=== PATIENT | female | born 1955 | race Caucasian/White ===

== ENCOUNTER 2016-07-31 05:37 | Day surgery (SDC) | payer OTHER ==
[~2016-07-31] VITALS: Ht 175.3 cm; Wt 80.1 kg
[2016-07-31] VITALS (10 sets, daily range): BP systolic 104–140; BP diastolic 54–88; PULSE 68–96; RESP 16–20; O2SAT 93–100
[~2016-07-31 05:37] MED LIST: LEVO25TA5 PO; Lactated Ringer's 1,000 ML IV ONE; RANI150C4 PO
[2016-07-31] MEDS ORDERED: fentaNYL-PF 50 mCg/mL 2 mL Inj ONE (05:38)
[2016-07-31] MEDS ORDERED: Propofol 10,000 mCg/mL 20 mL Inj ONE (05:38)
[2016-07-31] MEDS ORDERED: Ondansetron 2 mg/mL 2 mL Inj ONE (05:38)
[2016-07-31] MEDS ORDERED: Dexamethasone 4 mg/mL Inj ONE (05:38)
[2016-07-31] MEDS ORDERED: Bupivacaine Liposome 1.3% 20 mL Inj INFILTRATE ONE ×2 (06:00→08:20)
[2016-07-31] MEDS ORDERED: CeFAZolin Inj 2 GM in IV Premix 1 EACH IV ONE (06:00)
--- NOTE | 2016-07-31 07:09 | PCM.HPANE ---
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 Ht/WT & BMI Height (Feet): 5 Height (Inches): 9 Weight (Kilograms): 80.1 Body Mass Index 26.00 Allergies Coded Allergies: terbinafine (Verified Allergy, Unknown, ITCHING RASH, 07/31/16) Past Anesthesia History Anesthesia History: Positive for:: Abnormal Airway (Vocal cord dysfunction), Denies:: Anesthesia Reactions, Difficult Intubation, Fam Anesthesia Reaction , Fam Malignant Hypertherm, Malignant Hyperthermia Diabetes History Hx Diabetes?: No MRSA MRSA: No Medications Home Meds Incl Beta Naresh: No Reported Medications Ranitidine 150 Mg [id number] Mg PO BID Ref 0 07/25/16 Levothyroxine 25 Mcg Yyxwjt32 Mcg PO DAILY Ref 0 07/25/16 Discontinued Reported Medications Ranitidine 150 Mg [id number] Mg PO DAILY Ref 0 09/29/15 Levothyroxine 100 Mcg [id number] Mcg PO DAILY For Thyroid Replacement Ref 0 09/29/15 History HEENT History: Positive for:: Abnormal Airway (Vocal cord dysfunction) Denies:: Difficult Intubation Hearing Problem Hx of Heart Problems?: Yes Cardiovascular History: Positive for:: Thrombophlebitis (HX OF ANKLE DVT @ 11YRS OF AGE) Denies:: Hypertension Hx of Respiratory Problem?: Yes Respiratory History: Denies:: Use of C-PAP Machine (SNORES) Hx Neurologic Problems?: Yes Neurological History: Positive for:: Headaches Denies:: CVA Hx of GI Problems?: Yes Gastrointestinal History: Positive for:: Gastroesphageal Reflux (HX OF) Hx of Problems?: No Female Hx: Denies:: Currently (POST MENOPAUSAL) Skin History: Denies:: History Skin Disorders? Pressure Ulcers Hx Musculoskeletal Problems?: Yes Musculoskeletal History: Positive for:: Musculoskeletal Trauma (RT PATELLO- FEMORAL ARTHRITIS=CURRENT PROBLEM) Hx of Psycho/Social Problems?: No Hx Surgeries?: Yes (Left foot nerve removal) Hx Any Other Health Problems?: Yes Other History: Positive for:: Thyroid Disease Denies:: Cancer Endocrine Disease Hospitalization History Blood Transfusions: Denies:: Blood Transfusions Hx Diabetes: No Hx Alcohol Use: YesAlcoholic Drinks Per Day: 1/WEEK Smoking Status: Former Smoker Have You Smoked inLast 12 mo: No Stop/Bang S-Snoring: Do You Snore Loudly: Yes T-Tired: feel tired, fatigued: No O-Obsered: Observed not breath: No P-Blood Pressure: treated: No B- Body Mass Index > 35 kg/m2: No A- Age over 50: Yes N- Neck Large Circumference: No G- Gender Male: No SENIA Total Score: 2 SENIA Risk Assessment: Low Risk, <3 Yes Risk Assessment Category Category 1A: Patient has history of documented sleep apnea, and HAS NOT received any narcotic, sedative or anesthesia administration during this stay. Category 1B: Patient has history of documented sleep apnea, and HAS received any narcotic , sedative or anesthesia administration during this stay Category 2: Patient has SUSPECTED Obstructive Sleep Apnea, and HAS received any narcotic , sedative or anesthesia administration during this stay. Category 3: Patient has SUSPECTED Obstructive Sleep Apnea and HAS NOT received narcotic, sedative or anesthesia administration during this stay. Category 4: Outpatient in Procedural Areas with known sleep apnea or who screen positive for High Risk via the STOP/BANG questionnaire. Exam Exam Vital Signs Vital Signs Date Time Temp Pulse Resp B/P Pulse Ox O2 Delivery O2 Flow Rate FiO2 07/31/16 06:40 36.5 73 16 126/77 96 Room Air General Appearance: Alert, Oriented X3, Cooperative, No Acute Distress HEENT/AIRWAY: MP 1, Neck Movement Lungs: Clear to Auscultation, Normal Air Movement Heart: Exam Unremarkable, Regular Rate/Rhythm, No Murmurs/Rubs/Gallops Plan Impression Patient chart reviewed, patient interviewed and anesthestic plan with risks, benefits, and alternatives discussed, and informed consent obtained. NPO Status: 1600 07/30 ASA Physical Status: ASA2 Mod Systemic Disease Anesthetic Plan: GA, Regional Block Bene/Risks/Altern/Consents: Yes HP Complete Prior to Induction: Yes Vadim Pierson MD Jul 31, 2016 07:09
[2016-07-31] MEDS ORDERED: Lactated Ringer's 1,000 ML IV ONE (07:14)
[2016-07-31] MEDS: Vancomycin Inj 1,000 MG in IV Premix 1 EACH IV SCH (07:24)
[2016-07-31] MEDS ORDERED: Lactated Ringer's 1,000 ML IV SCH ×2 (08:16→10:45)
[2016-07-31] MEDS ORDERED: Lactated Ringer's 500 ML IV PRN (08:16)
[2016-07-31] MEDS ORDERED: Gentamicin 40 mg/mL 2 mL Inj IRRIGATION ONE (08:19)
[2016-07-31] MEDS ORDERED: hydrALAZINE 20 mg/mL Inj IVPUSH PRN (08:20)
[2016-07-31] MEDS ORDERED: Dexamethasone 4 mg/mL Inj IVPUSH PRN (08:20)
[2016-07-31] MEDS ORDERED: Bupivacaine-MPF 0.25%/EPI 30 mL Inj INJ ONE (08:20)
[2016-07-31] MEDS ORDERED: EPHEDrine Sulfate 50 mg/mL Inj IVPUSH PRN (08:20)
[2016-07-31] MEDS ORDERED: Phenylephrine 10,000 mCg/mL Inj IVPUSH PRN (08:20)
[2016-07-31] MEDS ORDERED: Atropine 0.4 mg/mL Inj IVPUSH PRN (08:20)
[2016-07-31] MEDS ORDERED: HYDROmorphone 1 mg/mL Inj IVPUSH PRN (08:20)
[2016-07-31] MEDS ORDERED: Labetalol 5 mg/mL 4 mL Inj IV PRN (08:20)
[2016-07-31] MEDS ORDERED: fentaNYL-PF 50 mCg/mL 2 mL Inj IVPUSH PRN (08:20)
[2016-07-31] MEDS ORDERED: MetoCLOpramide 5 mg/mL 2 mL Inj IVPUSH PRN (08:20)
[2016-07-31] MEDS ORDERED: Ondansetron 2 mg/mL 2 mL Inj IVPUSH PRN (08:20)
--- NOTE | 2016-07-31 09:57 | DRSVH ---
PROCEDURE: X-RAY RIGHT KNEE, ONE OR TWO VIEWS ([id number]) INDICATIONS: CHECK ALIGNMENT TECHNIQUE: 2 view(s) of the knee acquired. COMPARISON: None. FINDINGS: Bones: Patient is status post patellar femoral arthroplasty. Hardware components are in expected po sitions. Visualized bony structures are intact. Soft tissues: Overlying postoperative changes are noted. IMPRESSION: Patellofemoral arthroplasty with prostheses in anatomic alignment. Dictated by: Mary Ann Lopez M.D. on 07/31/2016 at 9:54 Approved by: MaryA nn Lopez M.D. on 07/31/2016 at 9:55
[2016-07-31] MEDS ORDERED: Alum-Mag Hydrox-Simeth 30 mL Suspension PO PRN (10:45)
[2016-07-31] MEDS ORDERED: Ondansetron 2 mg/mL 2 mL Inj IV PRN (10:45)
[2016-07-31] MEDS ORDERED: hydrOXYzine Pamoate 25 mg Capsule PO PRN (10:45)
[2016-07-31] MEDS ORDERED: diphenhydrAMINE 25 mg Capsule PO PRN (10:45)
[2016-07-31] MEDS ORDERED: Ondansetron 8 mg ODT Tablet PO PRN (10:45)
[2016-07-31] MEDS ORDERED: MetoCLOpramide 5 mg/mL 2 mL Inj IV PRN (10:45)
[2016-07-31] MEDS ORDERED: Sodium Biphos-Phos 133 mL Enema RECTAL PRN (10:45)
[2016-07-31] MEDS ORDERED: LORazepam 0.5 mg Tablet PO PRN (10:45)
[2016-07-31] MEDS ORDERED: Magnesium Hydroxide 10 mL Oral Concentration PO PRN (10:45)
[2016-07-31] MEDS ORDERED: HYDROcodone-APAP 5-325 mg Tablet PO PRN (10:45)
--- NOTE | 2016-07-31 11:06 | PCM.ANEP1 ---
Post Anesthesia Phase 1 PACU Phase 1 Assessment Vital Signs Vital Signs Date Time Temp Pulse Resp B/P Pulse Ox O2 Delivery O2 Flow Rate FiO2 07/31/16 10:27 36.5 79 16 118/69 94 07/31/16 09:40 36.5 80 18 130/80 96 Room Air 07/31/16 09:35 87 20 130/72 96 Room Air 07/31/16 09:30 93 19 123/88 99 Room Air 07/31/16 09:25 96 17 132/84 100 Simple Mask 8 07/31/16 09:22 36.3 96 16 140/84 100 Simple Mask 8 07/31/16 06:40 36.5 73 16 126/77 96 Room Air Level of Alertness: Awake, talking LANGE's with Equal Strength: Yes Pain: No Nausea or Vomiting: No Oxygen Delivery: Room Air Lungs: Clear to Auscultation, Normal Air Movement Dermatome Level: Full Sensation Vadim Pierson MD Jul 31, 2016 11:06
--- NOTE | 2016-07-31 11:19 | NUR ---
ADMIT TO [facility] Patient arrived to room 1019 on hospital bed. Alert and oriented, on RA. Hemavac in place to R knee. R knee with operative dressing, mack wrap on outside. Patient has all sensation in bilateral toes and feet. Report no numbness or tingling. Rates pain as 5/10, but describes as aching. States pain is tolerable and denied any pain medication. Advised patient to report any increase in pain. IV fluids running. Ice chips and coffee given to patient. Will continue to monitor.
[2016-07-31] MEDS: Lactated Ringer's 1,000 ML IV SCH (11:23)
--- NOTE | 2016-07-31 11:23 | PCM.ANEP2 ---
Post Anesthesia Evaluation ASA/CMS Post Anesthesia VS in Patient's Normal Range?: Yes Resp Stable; Airway Patent?: Yes CV Function & Hydration Stable: Yes Mental Status Recovered?: Yes Pain control Satisfactory?: Yes N/V Control Satisfactory?: Yes Vadim Pierson MD Jul 31, 2016 11:23
--- NOTE | 2016-07-31 15:28 | NUR ---
Evaluation completed. Please go to "Notes" then click on "Assessments and Notes" (bottom left corner of screen). Then select appropriate discipline tab on top of screen.
[2016-07-31] MEDS: CeFAZolin Inj 2 GM in IV Premix 1 EACH IV SCH (16:33)
[2016-07-31] MEDS: Sodium Chloride LOK Flush 10 mL Syringe IV SCH (16:34)
[2016-07-31] MEDS ORDERED: Vancomycin Inj 1,000 MG in IV Premix 1 EACH IV ONE (19:30)
[2016-08-01] MEDS: Sodium Chloride LOK Flush 10 mL Syringe IV SCH ×2 (00:02→08:30)
[2016-08-01 00:04] VITALS: BP 107/67; PULSE 83; RESP 18; O2SAT 96
--- NOTE | 2016-08-01 00:10 | OP ---
[address] [address] OPERATIVE REPORT PATIENT: VENKATA MORTENSEN : 1955 MR#: [id number] ADMIT: 07/31/2016 JOB ID: [id number] DATE OF SURGERY: 07/31/2016 PREOPERATIVE DIAGNOSIS(ES): Right knee advanced patellofemoral arthritis. POSTOPERATIVE DIAGNOSIS(ES): Right knee advanced patellofemoral arthritis. PROCEDURE: Right knee patellofemoral arthroplasty. SURGEON: Derek Ramos MD. VEGETABLE WASHER: Mary Price PA-C. Hygiene Teacher required due to the complexity of the operation. INDICATIONS: This woman has had severe disability secondary to advanced patellofemoral arthritis. Radiographs demonstrate the tibial femoral articulation. No evidence of osteoarthritis. She elects to proceed with consideration of patellofemoral arthroplasty. Final decision was made at the time of surgery after observation of the of the medial and lateral tibial femoral components. PROCEDURE: The patient was prepped and draped in usual sterile fashion. An anteromedial approach was made. The patella was examined. The knee was flexed up and the tibial-femoral medial and lateral compartments were examined, and these were noted to be in excellent condition. Therefore, decision was made to proceed with patellofemoral arthroplasty. The patella was cut transversely and sized to a 32 component. Drill holes for this were made. Drill holes placed in the distal femur and an anterior distal femoral cut was made. The knee was then sized to a #2 implant and the 2 jig was applied in excellent positions, seated without flexion-extension abnormalities. The router was utilized to route out the surface and a trial implant was applied. Excellent tracking and alignment was obtained of the patella. There was no evidence of catch or other abnormality. The drill holes were made for the component, as well as distal routering was utilized. Wounds were irrigated with sterile irrigant, pressurized lavage, followed by pressurized cementation of the components. Excess cement was removed during the curing process. Tourniquet was let down and hemostasis was achieved. The Hemovac drain was left. The knee was closed with #2 Quill deep, followed by 2-0 Vicryl, 3-0, and a 4-0 intracuticular stitch. Patient tolerated procedure well. There were no complications.
[2016-08-01] MEDS: CeFAZolin Inj 2 GM in IV Premix 1 EACH IV SCH (00:13)
[2016-08-01] MEDS: Lactated Ringer's 1,000 ML IV SCH (04:43)
[2016-08-01 05:40] VITALS: BP 139/77; PULSE 76; RESP 18; O2SAT 96
[2016-08-01 06:39] LABS: BASOPHILS % (AUTO) 0 % (0-3); EOSINOPHILS % (AUTO) 0 % (0-5); MONOCYTES % (AUTO) 7.6 % (4-12); Mean Corpuscular Hemoglobin 30.1 pg (27.0-35.0); Mean Corpuscular Volume 90.9 fL (81-100); NEUTROPHILS % (AUTO) 76.3 % (40-74); Platelet Count 287 bil/L (150-400)
[2016-08-01] MEDS: oxyCODONE-Acetamin 5-325 mg Tablet PO PRN ×2 (10:21→12:54)
--- NOTE | 2016-08-01 11:06 | PCM.PNORTH ---
Subjective Date of Service: Aug 01, 2016 Visit Information: Reason for Visit Right Patello-Femoral Arthritis Surgery/Surgery Date R P-F ARTHROPLASTY 07/31/16 Post-Op Day # 1 Date of Admission: Hospital Day # Subjective Patient states she is having some discomfort in the front of her knee. Patient states this morning she was able start feeling her leg and toes. She states she had physical therapy yesterday in which she experienced a lot of buckling in her knee however today when she did physical therapy she was able to hold herself up and no buckling. No concerns. Postop General: No Complaints, No Shortness of Breath, No Chest Pain, Good Appetite Pain Management: PO Objective Exam Objective Patient sitting up in bed Vital Signs and I/O Vital Sign - Last Date Time Temp Pulse Resp B/P Pulse Ox O2 Delivery O2 Flow Rate FiO2 08/01/16 10:07 Room Air 08/01/16 05:40 36.8 76 18 139/77 96 07/31/16 09:25 8 Intake and Output 07/31/16 07/31/16 08/01/16 Cumulative From/Thru 15:00 23:00 07:00 07/25/16 14:58 - 08/01/16 06:48 Intake Total 1160 ml 1178 ml 1194 ml 3532 ml Output Total 50 ml 1500 ml 800 ml 2350 ml Balance 1110 ml -322 ml 394 ml 1182 ml Intake Oral 700 ml 400 ml 1100 ml IV Total 1160 ml 478 ml 794 ml 2432 ml Output Urine Total 1500 ml 700 ml 2200 ml Drainage Total 100 ml 100 ml Estimated Blood Loss 50 ml 50 ml Lab & Micro Results Laboratory Tests Test 08/01/16 06:00 White Blood Count 11.3th/mm3 (3.8-10.1) Red Blood Count 3.75mil/mm3 (3.90-5.20) Hemoglobin 11.3g/dL (12.0-15.6) Hematocrit 34.1% (35.0-46.0) Mean Corpuscular Volume 90.9fL (81-100) Mean Corpuscular Hemoglobin 30.1pg (27.0-35.0) Mean Corpuscular Hemoglobin Concent 33.1% (32.0-37.0) Red Cell Distribution Width 12.4% (12.3-15.4) Platelet Count 287bil/L (150-400) Neutrophils (%) (Auto) 76.3% (40-74) Lymphocytes (%) (Auto) 15.8% (14-46) Monocytes (%) (Auto) 7.6% (4-12) Eosinophils (%) (Auto) 0% (0-5) Basophils (%) (Auto) 0% (0-3) Result Diagram: 08/01/16 0600 General Appearance: Alert, Oriented X3, Cooperative, No Acute Distress Extremities: Distal Pulses Palpable, No Compartment Syndrom Noted Postop Sensory Motor: Distal Motor Intact, Movement in Toes, Distal Sensation Intact, NVI Distally SURGICAL WOUND : Drain Location Body Site: Knee Wound Drainage Type: Hemovac (D/c today before leaving) Activity: Ambulate with PT (WBAT as tolerated) Assessment & Plan Impression POD#1 patellofemoral joint arthroplasty Problems: Plan Overnight hemovac output is 105. Weightbearing: Weightbearing as tolerated with a front-wheeled walker DVT prophylaxis: For an 81 mg twice a day 6 weeks Physical therapy for transfers, progressive ambulation, strengthening Wound care: Perioperative dressings will be changed to an island dressing tomorrow by patient. Please send patient home with an island dressing. Analgesia: Oral pain management including Percocet and Vistaril. Discharge plan: Discharge home today after afternoon physical therapy. Start outpatient physical therapy within one week. Follow-up plan: In 2 weeks at [facility] with [facility] for wound check and at [address] Ramos with x-rays VTE Prophylaxis: Other (aspirin 81 mg twice a day 6 weeks) Mary Price PA-C Aug 01, 2016 10:59
[2016-08-01] MEDS ORDERED: DOCU-41 PO (11:20)
[2016-08-01] MEDS ORDERED: OXYC1TAB24 PO (11:20)
[2016-08-01] MEDS ORDERED: HYDR-3797 PO (11:20)
[2016-08-01] MEDS ORDERED: ONDA4TAB6 PO (11:20)
[2016-08-01] MEDS ORDERED: ASPI-973 PO (11:20)
--- NOTE | 2016-08-01 11:38 | PCM.DIOPOR ---
OP Ortho Discharge Instruction Dates of Hospitalization Date of Discharge: Aug 01, 2016 Providers Admitting Physician: Primary Care Physician: Cirstobal Attending Physician: Derek Ramos MD Diagnosis at Time of Discharge Post operative diagnosis Status post right patellofemoral joint arthroplasty Diet Discharge Diet: No restrictions Activity Activity-General: Try not to overdue, Be up and about, Balance rest and activity, Elevate & ice extremity, Ice incision 3-5 time/day for 20min Right Lower Extremity: Weight Bearing as tolerated Discharge Assist Device: Front Wheeled Walker Dressing and Incisional Care Dressing Care: Keep dressing clean, dry & intact (Until tomorow. ), Allow Steri Stripes to fall off Hygiene: May shower (One week after surgery if incision is clean and dry.) Additional Instructions Discharge Instructions Weightbearing: Weightbearing as tolerated with a front-wheeled walker DVT prophylaxis: Aspirin for an 81 mg twice a day 6 weeks Shower instructions: You may shower one week from surgery if your incision is dry and not draining. Remove dressing and allow water to run past the incision. Do not scrub, do not soak. Pat dry. Wound care: Remove your bulky bandages tomorrow. Apply the adhesive "island" dressing given to you before you leave. Pull on thigh high compression stockings after your apply your island dressing. You do not need to keep the incision covered after one week. Analgesia: Oral pain management including Percocet and Vistaril. I have also given you a prescription for Zofran for nausea and Colace for constipation. Follow-up plan: In 2 weeks at [facility] with [facility] for wound check and at [address] Ramos with x-rays Mary Price PA-C Aug 01, 2016 11:38
--- NOTE | 2016-08-01 11:57 | PCM.DC.ORT ---
Discharge Summary Date of Service: Aug 01, 2016 Date of Hospital Admission: Date of Surgery: Aug 01, 2016 Date of Discharge: Aug 01, 2016 Reason for Hospitalization: Right knee patellofemoral arthritis Procedures Performed: Right knee patellofemoral joint arthroplasty Hospital Course: The patient was admitted to the hospital on 07/31/2016 and underwent the above procedure. Antibiotic prophylaxis consisting of Ancef and vancomycin. The surgeon was Dr. Ramos. A Madison was placed perioperatively. Patient tolerated the procedure well and was transferred to recovery room in stable condition. Madison and hemovac drain was discontinued on postop day 1. Patient had physical therapy to work on ambulation and transfers. Weightbearing as tolerated with walker. Pain was managed with Percocet, Vistaril, Toradol. DVT prophylaxis: Aspirin 81 mg twice a day 6 weeks and SCDs. Hospital course was uncomplicated. Patient was able to perform adequately enough to be discharged home on postop day 1. Follow-up: at [facility] 2 weeks postop for wound check and at [address] Ramos with x-ray. Diagnosis at Time of Discharge Status post right knee patellofemoral joint arthroplasty Problems: Disposition: Stable, discharged to home Discharge Instructions: Weightbearing: Weightbearing as tolerated with a front-wheeled walker DVT prophylaxis: Aspirin for an 81 mg twice a day 6 weeks Shower instructions: You may shower one week from surgery if your incision is dry and not draining. Remove dressing and allow water to run past the incision. Do not scrub, do not soak. Pat dry. Wound care: Remove your bulky bandages tomorrow. Apply the adhesive "island" dressing given to you before you leave. Pull on thigh high compression stockings after your apply your island dressing. You do not need to keep the incision covered after one week. Analgesia: Oral pain management including Percocet and Vistaril. I have also given you a prescription for Zofran for nausea and Colace for constipation. Follow-up plan: In [address] [facility] with PA for wound check and at [address] Ramos with x-rays Aspirin (Aspirin) 81 Mg Tablet 81 MG PO BID PRN PRN DVT prophylaxis Docusate Sodium (Colace) 100 Mg Capsule 200 MG PO BID Hydroxyzine Pamoate (HydrOXYzine Pamoate) 25 Mg Capsule 0 MG PO Q4H PRN PRN For discomfort Levothyroxine (Levothyroxine) 25 Mcg Tablet 25 MCG PO DAILY Ondansetron (Zofran) 4 Mg Tablet 4 MG PO Q4H PRN PRN For Nausea Ranitidine (Ranitidine) 150 Mg Capsule 150 MG PO BID oxyCODONE-Acetaminophen 5-325 mg (oxyCODONE-Acetaminophen 5-325 mg) 1 Each Tablet 1-2 TAB PO Q3H PRN PRN For Severe Pain Mary Price PA-C Aug 01, 2016 11:57
--- NOTE | 2016-08-01 12:26 | NUR ---
Social Work Screen Note and Discharge: SW met with patient at bedside to discuss discharge plan. Order for discharge acknowledged. Patient is a 60 year odl female admitted under [facility] for right patello-femoral arthritis. Patient payer as [facility]. Patient PCP as MONICA Real. Patient resides with Benny Lewis with . Patient has no previous [facility] history. Patient has a walker and cane for use at home. Patient states pharmacy of choice as [facility]. Patient aware of therapy recommendations for outpt therapy. Patient states she has an outpt appointment on Sunday at [facility] out[facility] therapy [facility]. SW to follow. PLAN: Home with via POV, pending clinical course. Patient has scheduled outpt PT appointment on Sunday. SW to follow if further needs arise. Tanner CEJA
--- NOTE | 2016-08-01 16:03 | NUR ---
Discharge pt discharged to home with ; A&Ox3, LANGE, VSS, Pain tolerable, Hemovac dc'd - new gauze/tegaderm in place, continues to ooze but contained within dressing - add'l dressing provided. Hard copy script provided to prior to dc for pharmacy filling. IV dc'd intact. CareNotes and instructions provided on dc dx and new medications and s/sx to seek medical attention for. Dressing to knee CDI - island dressing provided to change drsg tomorrow 08/02. No questions or concerns left unanswered prior to dc. All personal belongings in hand. Wheeled off unit to vehicle.
[2016-11-01] MEDS ORDERED: LEVO25TA41 PO (10:30)
[2016-11-01] MEDS ORDERED: RANI150C4 PO (10:30)
== END 2016-08-01 15:57 | disposition home or self-care (01) ==
LOC: SAS 05:37 → OSC 10:08 → SAS 08-01 15:57
PROVIDERS: ATTEND Orthopaedic Surgery
DX: M17.11 Unilateral primary osteoarthritis, right knee (principal); E07.9 Disorder of thyroid, unspecified
CPT/HCPCS: 27438; 36415; 73560; 85025; 97110; 97116; 97161; J0690; J1100; J1580; J2250; J2405; J3010; J3370; J7120

== ENCOUNTER 2016-11-06 07:45 | Day surgery (SDC) | payer OTHER ==
[~2016-11-06] VITALS: Ht 175.3 cm; Wt 80.4 kg
[2016-11-06] VITALS (11 sets, daily range): BP systolic 105–130; BP diastolic 63–84; PULSE 63–82; RESP 13–18; O2SAT 95–98
[~2016-11-06 07:45] MED LIST changes: +LEVO25TA41 PO; -LEVO25TA5 PO; +Vancomycin Inj 1,000 MG in IV Premix 1 EACH IV ONE
[2016-11-06] MEDS ORDERED: Dexamethasone 4 mg/mL Inj ONE (07:46)
[2016-11-06] MEDS ORDERED: fentaNYL-PF 50 mCg/mL 2 mL Inj ONE (07:46)
[2016-11-06] MEDS ORDERED: MetoCLOpramide 5 mg/mL 2 mL Inj ONE (07:46)
[2016-11-06] MEDS ORDERED: Propofol 10,000 mCg/mL 20 mL Inj ONE (07:46)
--- NOTE | 2016-11-06 09:45 | PCM.HPANE ---
Patient Data Surgeon Admitting Provider: Attending Provider:Derek Ramos MD Primary Care Physician:Other,Physician Other Provider:Layton Hughes Anesthesia Reason for Visit Left Knee Arthritis LEFT KNEE ARTHRITIS Ht/WT & BMI Height (Feet): 5 Height (Inches): 9 Weight (Kilograms): 80.73 Body Mass Index 26.00 Allergies Coded Allergies: terbinafine (Verified Allergy, Unknown, ITCHING RASH, 07/31/16) Past Anesthesia History Anesthesia History: Positive for:: Abnormal Airway (Vocal cord dysfunction), Denies:: Anesthesia Reactions, Difficult Intubation, Fam Anesthesia Reaction , Fam Malignant Hypertherm, Malignant Hyperthermia Diabetes History Hx Diabetes?: No MRSA MRSA: No Medications Reported Medications Ranitidine 150 Mg Oceordh129 Mg PO BID Ref 0 11/01/16 Levothyroxine (Levoxyl)25 Mcg [id number] Mcg PO DAILY Ref 0 11/01/16 Discontinued Reported Medications Ranitidine 150 Mg Wsqrbmo141 Mg PO BID Ref 0 07/25/16 Levothyroxine 25 Mcg Zepgmi80 Mcg PO DAILY Ref 0 07/25/16 Discontinued Scripts Ondansetron (Zofran)4 Mg Tablet4 Mg PO Q4H PRN For Nausea #30 TABLET Prov:Mary Price PA-C 08/01/16 Docusate Sodium (Colace)100 Mg Qvybjmr405 Mg PO BID #15 CAPSULE Prov:Mary Price PA-C 08/01/16 Aspirin 81 Mg Aoknfi75 Mg PO BID PRN DVT prophylaxis 45 Days Ref 0 Prov:Mary PriceC 08/01/16 oxyCODONE-Acetaminophen 5-325 mg 1 Each Tablet1-2 Tab PO Q3H PRN For Severe Pain #60 TABLET Prov:Mary Price PA-C 08/01/16 Hydroxyzine Pamoate (HydrOXYzine Pamoate)25 Mg Capsule PO Q4H PRN For discomfort #60 CAPSULE Prov:Mary Price PA-C 08/01/16 History History of ENT Problems?: No HEENT History: Positive for:: Abnormal Airway (Vocal cord dysfunction) Denies:: Cataracts Difficult Intubation Dysphagia Glaucoma Hearing Problem Sinus Problem TMJ Denture Type: None Teeth Condition: Within Normal Limits Hx of Heart Problems?: Yes Cardiovascular History: Positive for:: Thrombophlebitis (HX OF ANKLE DVT @ 11YRS OF AGE) Denies:: Hypertension Hx of Respiratory Problem?: No Respiratory History: Denies:: Asthma COPD Emphysema Oxygen Administration Pneumonia Tuberculosis Use of C-PAP Machine Hx Neurologic Problems?: Yes Neurological History: Positive for:: Headaches Denies:: CVA Multiple Sclerosis Parkinson's Disease Seizures Hx of GI Problems?: Yes Hx of Problems?: No Female Hx: Denies:: Currently Skin History: Denies:: History Skin Disorders? Pressure Ulcers Hx Musculoskeletal Problems?: Yes Musculoskeletal History: Positive for:: Joint Replacement (right knee 07/2015 here) Musculoskeletal Trauma (left knee current admission problem) Osteoarthritis Hx of Psycho/Social Problems?: No Hx Surgeries?: Yes (Left foot nerve removal, right knee) Hx Any Other Health Problems?: Yes Other History: Positive for:: Thyroid Disease Denies:: Cancer Endocrine Disease Hospitalization History Blood Transfusions: Denies:: Blood Transfusions Hx Diabetes: No Hx Alcohol Use: YesAlcoholic Drinks Per Day: once weeklyHx Substance Use: No Smoking Status: Former Smoker Have You Smoked inLast 12 mo: No Stop/Bang S-Snoring: Do You Snore Loudly: Yes T-Tired: feel tired, fatigued: No O-Obsered: Observed not breath: No P-Blood Pressure: treated: No B- Body Mass Index > 35 kg/m2: No A- Age over 50: Yes N- Neck Large Circumference: No G- Gender Male: No SENIA Total Score: 2 Risk Assessment Category Category 1A: Patient has history of documented sleep apnea, and HAS NOT received any narcotic, sedative or anesthesia administration during this stay. Category 1B: Patient has history of documented sleep apnea, and HAS received any narcotic , sedative or anesthesia administration during this stay Category 2: Patient has SUSPECTED Obstructive Sleep Apnea, and HAS received any narcotic , sedative or anesthesia administration during this stay. Category 3: Patient has SUSPECTED Obstructive Sleep Apnea and HAS NOT received narcotic, sedative or anesthesia administration during this stay. Category 4: Outpatient in Procedural Areas with known sleep apnea or who screen positive for High Risk via the STOP/BANG questionnaire. Exam Exam General Appearance: Alert, Oriented X3, Cooperative, No Acute Distress HEENT/AIRWAY: MP 2 Lungs: Clear to Auscultation Heart: Exam Unremarkable Plan Impression Patient chart reviewed, patient interviewed and anesthestic plan with risks, benefits, and alternatives discussed, and informed consent obtained. ASA Physical Status: ASA2 Mod Systemic Disease Anesthetic Plan: GA, Regional Block (fnb) Bene/Risks/Altern/Consents: Yes HP Complete Prior to Induction: Yes Donn Harding MD November 06, 2016 07:57
[2016-11-06] MEDS ORDERED: Tranexamic Acid 100 mg/mL 10 mL Inj ONE (09:57)
[2016-11-06] MEDS ORDERED: CeFAZolin Inj 2 gm / 50mL D5W IV ONE (09:57)
[2016-11-06] MEDS ORDERED: Bupivacaine Liposome 1.3% 20 mL Inj ONE (09:58)
[2016-11-06] MEDS ORDERED: Bupivacaine Liposome 1.3% 20 mL Inj INFILTRATE ONE (10:58)
[2016-11-06] MEDS ORDERED: Gentamicin 40 mg/mL 2 mL Inj IRRIGATION ONE (10:58)
[2016-11-06] MEDS ORDERED: Bupivacaine-MPF 0.25%/EPI 30 mL Inj INFILTRATE ONE (10:59)
[2016-11-06] MEDS ORDERED: MetoCLOpramide 5 mg/mL 2 mL Inj IVPUSH PRN (11:15)
[2016-11-06] MEDS ORDERED: HYDROmorphone 1 mg/mL Inj IVPUSH PRN (11:15)
[2016-11-06] MEDS ORDERED: fentaNYL-PF 50 mCg/mL 2 mL Inj IVPUSH PRN (11:15)
[2016-11-06] MEDS ORDERED: Lactated Ringer's 1,000 ML IV SCH (11:15)
[2016-11-06] MEDS ORDERED: Ondansetron 2 mg/mL 2 mL Inj IVPUSH PRN (11:15)
[2016-11-06] MEDS ORDERED: EPHEDrine Sulfate 50 mg/mL Inj IVPUSH PRN (11:15)
[2016-11-06] MEDS ORDERED: Lactated Ringer's 500 ML IV PRN (11:15)
[2016-11-06] MEDS ORDERED: Dexamethasone 4 mg/mL Inj IVPUSH PRN (11:15)
[2016-11-06] MEDS ORDERED: Phenylephrine 10,000 mCg/mL Inj IVPUSH PRN (11:15)
--- NOTE | 2016-11-06 12:17 | PCM.ANEP1 ---
Post Anesthesia Phase 1 PACU Phase 1 Assessment Vital Signs Vital Signs Date Time Temp Pulse Resp B/P Pulse Ox O2 Delivery O2 Flow Rate FiO2 11/06/16 12:05 71 16 126/79 96 Room Air 11/06/16 12:00 71 15 127/84 97 Nasal Cannula 3 11/06/16 11:55 36.1 70 16 130/74 97 Nasal Cannula 3 11/06/16 08:04 35.8 63 14 111/67 98 Room Air Anesthetic Administered: GA, Regional Block Level of Alertness: Awake, talking LANGE's with Equal Strength: Yes Pain: Yes Nausea or Vomiting: No Cardiovascular Function and Hy: Yes Oxygen Delivery: Room Air Lungs: Clear to Auscultation Dermatome Level: Full Sensation Complications: No Follow up Care: No Donn Harding MD November 06, 2016 12:17
--- NOTE | 2016-11-06 12:48 | DRSVH ---
PROCEDURE: X-RAY LEFT KNEE, ONE OR TWO VIEWS ([id number]) INDICATIONS: post op knee surgery TECHNIQUE: 2 views of the knee were acquired. COMPARISON: [facility], , XR KNEE 1 OR 2VW RT, 09/12/2016, 9:29. FINDINGS: Expected postoperative changes related to a partial left knee replacement/arthroplasty involving the patellofemoral compartment is noted. A metallic prosthetic components are intact and appropriately s eated without periprosthetic fracture. Otherwise, the remainder of the osseous structures of the kne e are unremarkable. Expected postoperative changes within the soft tissues with corresponding edema, joint effusion, and soft tissue air are noted. Drainage catheter is seen overlying the suprapatella r region. No unexpected radiopaque foreign bodies are identified. IMPRESSION: Expected postoperative changes related to a partial left knee arthroplasty, as described. Dictated by: Prieto Simons M.D. on 11/06/2016 at 11:45 Approved by: Prieto Simons M.D. on 11/06/2016 at 11:47
[2016-11-06] MEDS ORDERED: Sodium Biphos-Phos 133 mL Enema RECTAL PRN (14:15)
[2016-11-06] MEDS ORDERED: Magnesium Hydroxide 10 mL Oral Concentration PO PRN (14:15)
[2016-11-06] MEDS ORDERED: HYDROcodone-APAP 5-325 mg Tablet PO PRN (14:15)
[2016-11-06] MEDS ORDERED: Ondansetron 2 mg/mL 2 mL Inj IV PRN (14:15)
[2016-11-06] MEDS ORDERED: hydrOXYzine Pamoate 25 mg Capsule PO PRN (14:15)
[2016-11-06] MEDS ORDERED: Alum-Mag Hydrox-Simeth 30 mL Suspension PO PRN (14:15)
[2016-11-06] MEDS: Lactated Ringer's 1,000 ML IV SCH (14:15)
[2016-11-06] MEDS ORDERED: oxyCODONE-Acetamin 5-325 mg Tablet PO PRN (14:15)
[2016-11-06] MEDS ORDERED: diphenhydrAMINE 25 mg Capsule PO PRN (14:15)
[2016-11-06] MEDS ORDERED: MetoCLOpramide 5 mg/mL 2 mL Inj IV PRN (14:15)
[2016-11-06] MEDS ORDERED: Ondansetron 8 mg ODT Tablet PO PRN (14:15)
[2016-11-06] MEDS: CeFAZolin Inj 2 GM in IV Premix 1 EACH IV SCH (20:21)
--- NOTE | 2016-11-06 23:53 | OP ---
[address] [address] OPERATIVE REPORT PATIENT: VENKATA MORTENSEN : 1955 MR#: [id number] ADMIT: 11/06/2016 JOB ID: [id number] DATE OF SURGERY: 11/06/2016 SURGEON: Everton Harrison MD PREOPERATIVE DIAGNOSIS(ES): Severe patellofemoral arthritis, left knee. POSTOPERATIVE DIAGNOSIS(ES): Severe patellofemoral arthritis, left knee. PROCEDURE: Left knee patellofemoral arthroplasty. MEDICAL LABORATORY TECHNICAL OFFICER: Mary Price PA-C. Injection Molding Machine Offbearer required due to the complexity of the operation. INDICATIONS: Progressive disability, unresponsive to conservative treatment in a woman who wishes to proceed with patellofemoral arthroplasty. She understands and accepts the potential for risks and complications, which include but are not limited to infection, thromboembolic, neurovascular events, as well as implant failure and progressive arthritis. PROCEDURE IN DETAIL: The patient was prepped and draped in the usual sterile fashion. In the interim this was after appropriate time out. The anteromedial approach was made. The patella was subluxed laterally, cut transversely, sized to a 32 and a patellar protection plate was utilized. The articular cartilage of the femur and tibia was examined. Minimal very subtle chondromalacia of the distal end of the femoral articular surface with intact tibial side articular cartilage quite minimal to assess. Decision was made to proceed with a patellofemoral arthroplasty. Drill hole placed in the distal femur. The alignment apparatus adjusted according to in the epicondylar axis. Appropriate depth cut made. Sized to a #2 provisionally fixed bur and utilized to prepare followed by placement of the provisional for drilling stabilization holes. Following this, wounds were irrigated with pressurized lavage, pressurized cementation of the components. The ensued excess cement was removed during the curing process. Excellent patellofemoral tracking was achieved. Wounds were irrigated with sterile irrigant. A deep Hemovac drain was left. Tourniquet was let down. Hemostasis achieved. Deep closure with #2 Quill deep followed by 2-0 Vicryl, 3-0 Vicryl and a 4-0 anterior cuticular stitch.
[2016-11-07 01:25] VITALS: BP 104/67; PULSE 68; RESP 18; O2SAT 94
[2016-11-07] MEDS: CeFAZolin Inj 2 GM in IV Premix 1 EACH IV SCH (02:02)
[2016-11-07 05:51] LABS: BASOPHILS % (AUTO) 0 % (0-3); EOSINOPHILS % (AUTO) 0 % (0-5); MONOCYTES % (AUTO) 5.4 % (4-12); Mean Corpuscular Hemoglobin 30.3 pg (27.0-35.0); NEUTROPHILS % (AUTO) 85.5 % (40-74); Platelet Count 273 bil/L (150-400)
[2016-11-07 06:25] VITALS: BP 111/68; PULSE 65; RESP 16; O2SAT 94
[2016-11-07] MEDS: Lactated Ringer's 1,000 ML IV SCH (06:55)
--- NOTE | 2016-11-07 13:04 | PCM.PNORTH ---
Subjective Date of Service: November 07, 2016 Visit Information: Reason for Visit Left Knee Arthritis Surgery/Surgery Date L PAT. FEM. ARTHROPLASTY 11/06/16 Post-Op Day # 1 Date of Admission: Hospital Day # Subjective Patient states she is feeling well. She states she is in. Patient states that she did physical therapy and thought she did very well however she gets buckling of her knee is updated physical therapy this afternoon. Patient has no concerns or complaints. Pain Management: PO Objective Exam Objective Sitting up in bed Vital Signs and I/O Vital Sign - Last Date Time Temp Pulse Resp B/P Pulse Ox O2 Delivery O2 Flow Rate FiO2 11/07/16 06:25 36.9 65 16 111/68 94 Room Air 11/06/16 12:00 3 Intake and Output 11/06/16 11/06/16 11/07/16 Cumulative From/Thru 15:00 23:00 07:00 11/01/16 10:22 - 11/07/16 06:25 Intake Total 1250 ml 790 ml 1349 ml 3389 ml Output Total 15 ml 600 ml 1080 ml 1695 ml Balance 1235 ml 190 ml 269 ml 1694 ml Intake Oral 450 ml 800 ml 1250 ml IV Total 1250 ml 340 ml 529 ml 2119 ml Tube Irrigant 20 ml 20 ml Output Urine Total 600 ml 950 ml 1550 ml Drainage Total 130 ml 130 ml Estimated Blood Loss 15 ml 15 ml # Bowel Movements 0 0 Lab & Micro Results Laboratory Tests Test 11/07/16 04:58 White Blood Count 11.7th/mm3 (3.8-10.1) Red Blood Count 3.79mil/mm3 (3.90-5.20) Hemoglobin 11.5g/dL (12.0-15.6) Hematocrit 34.1% (35.0-46.0) Mean Corpuscular Volume 90.0fL (81-100) Mean Corpuscular Hemoglobin 30.3pg (27.0-35.0) Mean Corpuscular Hemoglobin Concent 33.7% (32.0-37.0) Red Cell Distribution Width 12.4% (12.3-15.4) Platelet Count 273bil/L (150-400) Neutrophils (%) (Auto) 85.5% (40-74) Lymphocytes (%) (Auto) 8.8% (14-46) Monocytes (%) (Auto) 5.4% (4-12) Eosinophils (%) (Auto) 0% (0-5) Basophils (%) (Auto) 0% (0-3) Result Diagram: 11/07/16 0458 General Appearance: Alert, Oriented X3, Cooperative, No Acute Distress Extremities: Distal Pulses Palpable, Warm, No Compartment Syndrom Noted, Thigh & Calf Soft/Nontender Postop Sensory Motor: Distal Motor Intact, Movement in Toes, Distal Sensation Intact, NVI Distally SURGICAL WOUND : Wound Location/Description Perioperative dressing C/D/I Hemovac in place Drain Location Body Site: Knee Wound Drainage Type: Hemovac Activity: Ambulate with PT (WBAT with FWW) Assessment & Plan Impression Postoperative day #1 left patellofemoral joint arthroplasty Problems: Plan Weightbearing: Weightbearing as tolerated with a front wheeled walker DVT prophylaxis: Aspirin 81 mg twice a day 6 weeks Physical therapy for transfers, progressive ambulation, strengthening Wound care: Perioperative dressing will be changed to an island dressing tomorrow by patient. Compression stockings will then be put on. Please provide patient with THIGH HIGH compression stockings and two (2) island dressings to take home. Analgesia: Percocet 5/325 Discharge plan: Discharge home today after physical therapy. Start outpatient physical therapy Sunday. Follow-up plan: In 2 weeks at [facility] with [facility] for wound check and at [address] Ramos with x-rays Mary Price PA-C November 07, 2016 13:04
--- NOTE | 2016-11-07 13:08 | PCM.DIOPOR ---
OP Ortho Discharge Instruction Dates of Hospitalization Date of Discharge: November 07, 2016 Providers Admitting Physician: Primary Care Physician: Other,Physician Attending Physician: Derek Ramos MD Diagnosis at Time of Discharge Post operative diagnosis Status post left patellofemoral joint replacement Diet Discharge Diet: No restrictions Activity Activity-General: Try not to overdue, Be up and about, Elevate & ice extremity , Ice incision 3-5 time/day for 20min Left Lower Extremity: Weight Bearing as tolerated Discharge Assist Device: Front Wheeled Walker Dressing and Incisional Care Dressing Care: Keep dressing clean, dry & intact, Remove outer dressing after 24 hrs (and place island dressing and KADIE compression stockings on over island) Hygiene: May shower after (with dressing covered), DO NOT soak incision under water, NO bathtub, hot tub or whirlpool Additional Instructions Discharge Instructions Weightbearing: Weightbearing as tolerated with a front wheeled walker DVT prophylaxis: Aspirin 81 mg twice a day 6 weeks Wound care: Perioperative dressing will be changed to an island dressing tomorrow by patient. Please remove the mack wrap and cotton padding. Place the island dressing over your incision then compression stockings will then be put on. Shower instructions: May shower with dressing covered with saran wrap or a plastic bag. In one week, patient may remove dressings and shower without incision covered. Analgesia: Percocet 5/325 Ice and elevate frequently. Attend formal physical therapy starting on Sunday. Follow-up plan: In 2 weeks at [facility] with [facility] for wound check and at [address] Ramos with x-rays Mary Price PA-C November 07, 2016 13:08
[2016-11-07] MEDS ORDERED: OXYC1TAB24 PO (13:09)
--- NOTE | 2016-11-07 13:12 | PCM.DC.ORT ---
Discharge Summary Date of Service: November 07, 2016 Date of Hospital Admission: Date of Surgery: November 06, 2016 Date of Discharge: November 07, 2016 Reason for Hospitalization: Left patellofemoral joint osteoarthritis Procedures Performed: Left patellofemoral joint arthroplasty Hospital Course: The patient was admitted to the hospital on 11/06/2016 and underwent the above procedure. Antibiotic prophylaxis consisting of Ancef and vancomycin. The surgeon was Dr. Ramos. Patient tolerated the procedure well and was transferred to recovery room in stable condition. Hemovac drain was discontinued on postop day 1. Patient had physical therapy to work on ambulation and transfers. Weightbearing as tolerated with walker. Pain was managed with Percocet, Vistaril, Toradol. DVT prophylaxis: Aspiring 81mg for six weeks and SCDs. Hospital course was uncomplicated. Patient was able to perform adequately enough to be discharged home on postop day 1. Follow-up: at [facility] 2 weeks postop for wound check and at [address] Ramos with x-ray. Diagnosis at Time of Discharge Status post left patellofemoral joint arthroplasty Problems: Disposition: Stable discharge to home Discharge Instructions: Weightbearing: Weightbearing as tolerated with a front wheeled walker DVT prophylaxis: Aspirin 81 mg twice a day 6 weeks Wound care: Perioperative dressing will be changed to an island dressing tomorrow by patient. Please remove the mack wrap and cotton padding. Place the island dressing over your incision then compression stockings will then be put on. Shower instructions: May shower with dressing covered with saran wrap or a plastic bag. In one week, patient may remove dressings and shower without incision covered. Analgesia: Percocet 5/325 Ice and elevate frequently. Attend formal physical therapy starting on Sunday. Follow-up plan: In 2 weeks at [facility] with [facility] for wound check and at [address] Ramos with x-rays Levothyroxine (Levoxyl) 25 Mcg Tablet 25 MCG PO DAILY Ranitidine (Ranitidine) 150 Mg Capsule 150 MG PO BID oxyCODONE-Acetaminophen 5-325 mg (oxyCODONE-Acetaminophen 5-325 mg) 1 Each Tablet 1-2 TAB PO Q3H PRN PRN For Severe Pain Mary Price PA-C November 07, 2016 13:12
[2016-11-07 13:28] VITALS: BP 142/89; PULSE 70; RESP 18; O2SAT 94
== END 2016-11-07 16:48 | disposition home or self-care (01) ==
LOC: SAS 07:45 → OSC 12:25 → SAS 11-07 16:48
PROVIDERS: ATTEND Orthopaedic Surgery
DX: M17.12 Unilateral primary osteoarthritis, left knee (principal); M25.562 Pain in left knee
CPT/HCPCS: 27437; 36415; 73560; 85025; 97116; 97161; J0690; J1100; J1580; J2250; J2765; J3010; J3370; J7120